=== PATIENT | female | born 1970 | race Caucasian/White ===

== ENCOUNTER 2017-02-15 07:08 | Day surgery (SDC) | payer MEDICARE, BC ==
[~2017-02-15 07:08] MED LIST: ACETAMINOPHEN 1000MG/100 ML PREMIX IV ONE; CEFAZOLIN 2 Gram 50 ML IVPB ONE; FAMOTIDINE 20MG TABLET PO ONE; MECLIZINE 25 MG TABLET PO ONE; METOCLOPRAMIDE 10 MG TABLET PO ONE
[2017-02-15] MEDS ORDERED: LIDOCAINE 1% W/EPI 1:200,000 MPF 30ML SQ ONE (07:09)
[2017-02-15] MEDS ORDERED: DEXAMETHASONE PRESERVATIVE FREE 10MG/ML VIAL IV ONE (07:09)
[2017-02-15] MEDS ORDERED: FENTANYL PF 100MCG/2ML VIAL IV ONE (07:09)
[2017-02-15] MEDS ORDERED: MIDAZOLAM HCL 2MG/2ML VIAL IV ONE (07:09)
[2017-02-15] MEDS ORDERED: BUPIVACAINE 0.75% W/EPI MPF 30ML VIAL IVP ONE (07:09)
[2017-02-15] MEDS ORDERED: PROPOFOL 10 MG/ML VIAL IV ONE (07:09)
[2017-02-15] MEDS ORDERED: LIDOCAINE 2% MDV (20MG/ML) 20ML VIAL IV ONE (07:09)
--- NOTE | 2017-02-15 15:42 | Operative Note - [place] ---
DATE OF SURGERY: 02/15/17 PREOPERATIVE DIAGNOSES: 1. POST LUMBAR LAMINECTOMY SYNDROME, ICD-10 CODE = M96.1. 2. LUMBAR SPONDYLOSIS WITHOUT MYELOPATHY, ICD-10 CODE = M47.816. OPERATION: RADIOFREQUENCY RHIZOTOMY BILATERAL LUMBAR FACETS 3-4 AND 5-1. SURGEON: LOCO YOUNG D.O. ANESTHESIA: LOCAL SEDATION. ANESTHESIA PROVIDER: TOBY VILLAVICENCIO CRNA INDICATION: This patient presents with pain, which is low back. Examination shows tenderness of the lumbar spine above and below laminectomy scar. Diagnostics show fusion lumbar spine at 4-5. A previous facet series 75 plus percent pain control. Due to the failure of therapy and success of the facet series, the patient presents for rhizotomy for more long-term relief. She is also being fitted postoperatively for a lumbar support to help maintain posture , position, reduce pain with mobility, and to facilitate healing. PROCEDURE: Intravenous line, vital sign monitoring, IV sedation, prepped and draped in sterile technique and under imaging, facets at 3-4 and 5-1 identified and marked above and below the fusion. A 20-gauge extended rhizotomy cannula was positioned at each site bilaterally. Stimulation trials conducted. Rhizotomy burn performed. Local with anti-inflammatory into the sites. Topical antibiotics. Sterile dressing was applied. We will monitor and evaluate. cc: Dr. Wetzel JOB NUMBER: [id number] MTDD
== END 2017-02-15 09:40 | disposition home or self-care (01) ==
LOC: SUR 07:08
PROVIDERS: ATTEND Pain Medicine Interventional Pain Medicine
DX: M96.1 Postlaminectomy syndrome, not elsewhere classified (principal); M47.816 Spondylosis without myelopathy or radiculopathy, lumbar region; F31.9 Bipolar disorder, unspecified; E03.9 Hypothyroidism, unspecified; Z98.84 Bariatric surgery status
CPT/HCPCS: 64635; 64636; 01936; 81025; J1100; J3010; J3490